=== PATIENT | male | born 1955 | race Caucasian/White ===

== ENCOUNTER → 2022-08-17 14:41 | Outpatient (REF) | payer BC, SELFPAY ==
--- NOTE | 2022-08-17 14:55 | CA_ITS ---
Transthoracic Echocardiogram Patient (Last, First, Middle): Damon Porter, Gender: Male Date of : 1955 Age: 67 Procedure Date: 08/17/2022 Procedure Type: Transthoracic Echocardiogram Location: OP Height: 175.26 cm Weight: 106.6 kg BSA: 2.21 m2 Heart Rate: 88 bpm BP: 158 / 72 mmHg District Administrative Assistant: SB Referring MD: Jovana Malagon APRN Symptoms: AVS W/ INSUFF Study Quality: Technically Difficult ECG Rhythm: Sinus Conclusions: - The left ventricular systolic function is hyperdynamic. The visually estimated ejection fraction is >70%. - There is severely decreased right ventricular systolic function. - There is severe calcification of the aortic valve. There is moderate to severe aortic valve stenosis. - There is moderate tricuspid valve regurgitation. Findings Procedure Information Contrast agent, definity, is being given per protocol without apparent complications. The quality of the study was technically difficult. The study quality is limited by the patients inability to tolerate the test and patients body habitus. Left Ventricle Normal left ventricular cavity size. There is mildly increased left ventricular wall thickness. The left ventricular systolic function is hyperdynamic. The visually estimated ejection fraction is >70%. There is no evidence of regional wall motion abnormalities. E/E prime ratio is between 8 and 15 consistent with indeterminate filling pressures. Evidence suggests grade I (mild) diastolic dysfunction. Right Ventricle The right ventricle was not well visualized. There is severely decreased right ventricular systolic function. There is a pacemaker wire seen in the right ventricle. Atria Both atria are normal in size. Aortic Valve There is severe calcification of the aortic valve. There is moderate to severe aortic valve stenosis. The peak aortic velocity is 4.08 m/s with a calculated peak gradient of 67 mmHg. The mean gradient is 34 mmHg. The aortic valve area is 0.99 cm2. There is trace (trivial) aortic valve regurgitation. Dimensionless index 0.25. Stroke volume index 35 mL/m2. Mitral Valve There is mild mitral annular calcification. There is trace mitral valve regurgitation. Doubt any significant mitral stenosis. Pulmonic Valve The pulmonic valve is likely normal. Tricuspid Valve There is moderate tricuspid valve regurgitation. There is no evidence of pulmonary hypertension. Great Vessels The asc aorta and aortic arch are normal in size. Venous The inferior vena cava was not well visualized. Pericardium/Pleural There is no evidence of pericardial effusion. There is a large left sided pleural effusion. Prior Study Comparison Changes noted compared to prior study dated: 01/22/2021. Progression of aortic stenosis. Measurements 2D Linear Measurements IVSd: 1.35 0.6-0.9/0.6-1.0 cm LVIDd: 4.67 3.9-5.3/4.2-5.9 cm LVIDd Index: 2.11 2.4-3.2/2.2-3.1 cm/m2 LVIDs: 3.00 2.0-3.6 cm LVPWd: 1.09 0.7-1.1 cm LA Diam: 4.20 2.7-3.8/3.0-4.0 cm LAIDs Index: 1.90 1.5-2.3 cm/m2 LV Mass: 267.88 67-162/88-224 g LV Mass Index: 121.21 43-95/49-115 g/m2 LVOT Diam: 2.20 3.0+(-)1.3 cm 2D Systolic Function EF 4C: 72.90 >55% Mitral Valve MV Pk E: 1.26 MV PK A: 1.14 MV Decel Time: 196.00 E/A: 1.10 E'Lateral: 7.72 E'Medial: 5.77 E/E' Med: 21.80 E/E' Lat: 16.30 PHT: 57.00 MVA PHT: 3.86 Decel [place]: 6.44 Aortic Valve AoV Pk Tommy: 4.08 AoV Mn Tommy: 2.75 AoV VTI: 0.73 AoV Pk Grad: 67.00 Aov Mn Grad: 34.00 MINESH Cont.VTI: 0.99 LVOT LVOT Pk Tommy: 0.89 LVOT Mn Tommy: 0.65 LVOT VTI: 0.20 LVOT Pk Grad: 3.00 LVOT Mn Grad: 2.00 LVOT Diam: 2.20 LVOT Area: 3.80 Diastolic Function MV Pk E: 1.26 MV Pk A: 1.14 E/A: 1.10 E'Medial: 5.77 E/E' Med: 21.80 E' Laterial: 7.72 E/E' Lat: 16.30 Right Ventricle TAPSE (mm): 8.60 TVS' Tommy: 5.20 Tricuspid Valve TR Pk Tommy: 2.89 TR Pk Grad: 33.00 RA Press: 3.00 RVSP: 36.00 Great Vessels Aorta Sinus of Valsalva: 3.20 2.0-3.5 cm Ao Asc: 2.70 2.1-3.4 cm Ao Arch: 2.50 Pulmonary Valve PV Pk Tommy: 0.85 Peak PV Grad: 3.00 Updated in Other Vendor System with Status of Final Jason Torres MD electronically signed on 08/18/2022 3:56:07 PM with status of Final
== END ==
LOC: HO.CARD 14:41
PROVIDERS: Visit Provider Nurse Practitioner Family
DX: I35.2 Nonrheumatic aortic (valve) stenosis with insufficiency (principal)
CPT/HCPCS: 93306; Q9957